=== PATIENT | male | born 1995 | race African-American/Black ===

== ENCOUNTER 2016-11-15 15:34 | Emergency (ER) | payer OTHER ==
[~2016-11-15] VITALS: Ht 180.3 cm; Wt 70.0 kg
[2016-11-15 15:42] VITALS: TEMP 98.7
[2016-11-15 15:46] VITALS: BP 121/71; PULSE 68; RESP 17; O2SAT 98
[2016-11-15] MEDS ORDERED: KETOROLAC TROMETHAMINE 60 MG/2 ML (IM) VIAL IM ONE (16:00)
--- NOTE | 2016-11-15 16:27 | RADRPT ---
EXAM DATE/TIME: 11/15/2016 16:15 [facility] COMPARISON: No previous studies available for comparison. INDICATIONS : Trauma; fall. RADIATION DOSE: 40.11 CTDIvol (mGy) MEDICAL HISTORY : None SURGICAL HISTORY : None. ENCOUNTER: Initial ACUITY: 1 day PAIN SCALE: 5/10 LOCATION: cranial TECHNIQUE: Multiple contiguous axial images were obtained of the head. Using automated exposure control and adj ustment of the mA and/or kV according to patient size, radiation dose was kept as low as reasonably a chievable to obtain optimal diagnostic quality images. FINDINGS: CEREBRUM: The ventricles are normal for age. No evidence of midline shift, mass lesion, hemorrhage or acute in farction. No extra-axial fluid collections are seen. POSTERIOR FOSSA: The cerebellum and brainstem are intact. The 4th ventricle is midline. The cerebellopontine angle i s unremarkable. EXTRACRANIAL: The visualized portion of the orbits is intact. SKULL: The calvaria is intact. No evidence of skull fracture. CONCLUSION: No acute disease. Deepak Paredes MD on November 15, 2016 at 16:24 Board Certified Radiologist. This report was verified electronically.
--- NOTE | 2016-11-15 16:30 | RADRPT ---
EXAM DATE/TIME: 11/15/2016 16:15 [facility] COMPARISON: No previous studies available for comparison. INDICATIONS : Trauma; fall. RADIATION DOSE: 14.18 CTDIvol (mGy) MEDICAL HISTORY : None SURGICAL HISTORY : None. ENCOUNTER: Initial ACUITY: 1 day PAIN SCALE: 5/10 LOCATION: Bilateral cervical. TECHNIQUE: Volumetric scanning of the cervical spine was performed. Multiplanar reconstructions in the sagittal, coronal and oblique axial planes were performed. Using automated exposure control and adjustment o f the mA and/or kV according to patient size, radiation dose was kept as low as reasonably achievable to obtain optimal diagnostic quality images. FINDINGS: No significant subluxation or soft tissue swelling is seen. No definite fracture is identified for [place]. C2-C3: No appreciable compromise to the thecal sac, exiting nerve roots are seen. The neural fora henri are patent bilaterally. No appreciable thecal sac stenosis is seen. C3-C4: No appreciable compromise to the thecal sac, exiting nerve roots are seen. The neural fora henri are patent bilaterally. No appreciable thecal sac stenosis is seen. C4-C5: No appreciable compromise to the thecal sac, exiting nerve roots are seen. The neural fora henri are patent bilaterally. No appreciable thecal sac stenosis is seen. C5-C6: No appreciable compromise to the thecal sac, exiting nerve roots are seen. The neural fora henri are patent bilaterally. No appreciable thecal sac stenosis is seen. C6-C7: No appreciable compromise to the thecal sac, exiting nerve roots are seen. The neural fora henri are patent bilaterally. No appreciable thecal sac stenosis is seen. C7-T1: No appreciable compromise to the thecal sac, exiting nerve roots are seen. The neural fora henri are patent bilaterally. No appreciable thecal sac stenosis is seen. IMPRESSION: Unremarkable study. Lani Appiah MD on November 15, 2016 at 16:24 Board Certified Radiologist. This report was verified electronically.
--- NOTE | 2016-11-15 16:32 | PD ---
HPI Chief Complaint: Injury Time Seen by Provider: 15:42 Travel History International Travel<30 days: No Contact w/Intl Traveler<30days: No Traveled to known affect area: No History of Present Illness HPI 21-year-old healthy male here with complaint of headache and neck/back pain after fall. Patient was playing basketball when he went up to shoot up and got his arm/wrist Dr. on the hoop, falling down onto the ground and hitting another person on his way. He landed on the upper aspect of his thoracic spine/neck and hit his head. Unclear whether he had a brief LOC. Patient does complain of headache, but no nausea or vomiting. He complains of pain diffusely throughout the cervical spine and across the upper thoracic spine. He was boarded and collared and brought by EMS. [facility] Past Medical History Medical History: Denies Significant Hx Immunizations Current: Yes Past Surgical History Surgical History: No Previous Surgery Social History Alcohol Use: No Tobacco Use: No Substance Use: No Allergies-Medications (Allergen,Severity, Reaction): Coded Allergies: No Known Allergies (Unverified , 11/15/16) Reported Meds & Prescriptions Reported Meds & Active Scripts Active No Active Prescriptions or Reported Medications Review of Systems Except as stated in HPI: all other systems reviewed are Neg Physical Exam Narrative GENERAL: Well-appearing male in no acute distress SKIN: Focused skin assessment warm/dry. HEAD: Atraumatic. Normocephalic. EYES: Pupils equal and round. No scleral icterus. No injection or drainage. ENT: No nasal bleeding or discharge. Mucous membranes pink and moist. NECK: Midline tenderness to palpation throughout the cervical spine CARDIOVASCULAR: Regular rate and rhythm. RESPIRATORY: No accessory muscle use. MUSCULOSKELETAL: Diffuse tenderness to palpation throughout the upper thoracic spine without palpable step-offs, crepitus, subcutaneous emphysema. Lower thoracic and lumbar spine are unremarkable. 5 out of 5 strength in the bilateral upper and lower extremities with good distal sensation and pulses. NEUROLOGICAL: Awake and alert. normal speech. PSYCHIATRIC: Appropriate mood and affect; insight and judgment normal. Data Data Last Documented VS Vital Signs Date Time Temp Pulse Resp B/P Pulse Ox O2 Delivery O2 Flow Rate FiO2 11/15/16 15:46 68 17 121/71 98 Room Air 11/15/16 15:[address] Brain W/O Iv Contrast(Rout) (11/15/16 ) Ct Thor Spine W/O Contrast (11/15/16 ) Ketorolac Inj (Toradol Inj) (11/15/16 16:00) Ct Cerv Spine W/O Contrast (11/15/16 ) MDM Medical Decision Making Medical Screen Exam Complete: Yes Emergency Medical Condition: Yes Medical Record Reviewed: Yes Differential Diagnosis 21-year-old male here status post fall with possible brief LOC, headache, neck and upper thoracic spine pain. Differential includes closed head injury, skull fracture, ICH, cervical or thoracic spine fracture versus contusion. Narrative Course CTs of the brain, cervical and thoracic spine were obtained and unremarkable. Patient was reassured and will be discharged home. Diagnosis Primary Impression: Cervical strain Qualified Code: S16.1XXA - Cervical strain, initial encounter Additional Impression: Closed head injury Qualified Code: S09.90XA - Closed head injury, initial encounter Referrals: Primary Care Physician as needed Additional Instructions: Tylenol, ibuprofen, Aleve as needed for pain. Ice the affected area 20 minutes at a time 3-4 times daily. Med/Other Pt SpecificInfo: No Change to Meds Scripts No Active Prescriptions or Reported Meds Disposition: 01 DISCHARGE HOME Condition: Stable Monica Johnston MD Nov 15, 2016 16:32
--- NOTE | 2016-11-15 16:49 | RADRPT ---
EXAM DATE/TIME: 11/15/2016 16:21 [facility] COMPARISON: No previous studies available for comparison. INDICATIONS : Trauma; fall. RADIATION DOSE: 35.82 CTDIvol (mGy) MEDICAL HISTORY : None SURGICAL HISTORY : None. ENCOUNTER: Initial ACUITY: 1 day PAIN SCALE: 5/10 LOCATION: Bilateral thoracic. TECHNIQUE: Volumetric scanning of the thoracic spine was performed. Multiplanar reconstructions in the sagittal , coronal and oblique axial planes were performed. Using automated exposure control and adjustment o f the mA and/or kV according to patient size, radiation dose was kept as low as reasonably achievable to obtain optimal diagnostic quality images. FINDINGS: The vertebral bodies of the thoracic spine are in normal alignment without evidence of subluxation. Vertebral body height is maintained. No fractures are seen. T1-T2: Normal. T2-T3: The thecal sac has a normal diameter. No evidence of disc bulge or protrusion. T3-T4: The thecal sac has a normal diameter. No evidence of disc bulge or protrusion. T4-T5: The thecal sac has a normal diameter. No evidence of disc bulge or protrusion. T5-T6: The thecal sac has a normal diameter. No evidence of disc bulge or protrusion. T6-T7: The thecal sac has a normal diameter. No evidence of disc bulge or protrusion. T7-T8: The thecal sac has a normal diameter. No evidence of disc bulge or protrusion. T8-T9: The thecal sac has a normal diameter. No evidence of disc bulge or protrusion. T9-T10: The thecal sac has a normal diameter. No evidence of disc bulge or protrusion. T10-T11: The thecal sac has a normal diameter. No evidence of disc bulge or protrusion. T11-T12: The thecal sac has a normal diameter. No evidence of disc bulge or protrusion. T12-L1: The thecal sac has a normal diameter. No evidence of disc bulge or protrusion. CONCLUSION: Negative exam. No acute fracture. Amado Bob MD on November 15, 2016 at 16:46 Board Certified Radiologist. This report was verified electronically.
== END 2016-11-15 17:22 | disposition home or self-care (01) ==
LOC: NEPD 15:34
DX: S16.1XXA Strain of muscle, fascia and tendon at neck level, initial encounter (principal); S09.90XA Unspecified injury of head, initial encounter; W19.XXXA Unspecified fall, initial encounter; Y93.67 Activity, basketball
CPT/HCPCS: 70450; 72125; 72128; 96372; 99284; J1885

== ENCOUNTER 2017-04-18 14:55 | Emergency (ER) | payer SELFPAY ==
[~2017-04-18] VITALS: Ht 182.9 cm; Wt 70.0 kg
[2017-04-18 15:06] VITALS: BP 160/96; PULSE 86; RESP 14; TEMP 98; O2SAT 99
[2017-04-18 15:14] VITALS: BP 126/83; PULSE 74; RESP 18; TEMP 98.1; O2SAT 98
[2017-04-18] MEDS ORDERED: ACETAMINOPHEN 500 MG CPLT PO ONE (15:45)
--- NOTE | 2017-04-18 16:26 | PD ---
HPI Chief Complaint: Fall Time Seen by Provider: 15:33 Travel History International Travel<30 days: No Contact w/Intl Traveler<30days: No Traveled to known affect area: No History of Present Illness HPI This is a 21-year-old male who presents to the emergency department having been trying to do a trick putting his one leg through another leg on a concrete stage when he fell and hit his head. He reports severe headache, neck pain, some confusion and he feels like he slow to come up with his thoughts into words. He has not vomited. He remembers all the details of his accident. He is not on any blood thinners. PFSH Past Medical History Medical History: Denies Significant Hx Immunizations Current: Yes Tetanus Vaccination: < 5 Years Influenza Vaccination: No Past Surgical History Surgical History: No Previous Surgery Social History Alcohol Use: No Tobacco Use: No Substance Use: No Allergies-Medications (Allergen,Severity, Reaction): Coded Allergies: No Known Allergies (Unverified , 04/18/17) Reported Meds & Prescriptions Reported Meds & Active Scripts Active No Active Prescriptions or Reported Medications Review of Systems Except as stated in HPI: all other systems reviewed are Neg Physical Exam Narrative GENERAL:Well appearing, no acute distress SKIN: Focused skin assessment warm and dry. HEAD: Small hematoma palpable along the left posterior occiput. EYES: Pupils equal and round. No injection or drainage. ENT: Moist mucous membranes. No hemotympanum. NECK: Trachea midline. Tender to palpation along the midline cervical spine. CARDIOVASCULAR: Regular rate and rhythm. No murmur appreciated. RESPIRATORY: Clear to auscultation. Breath sounds equal bilaterally. GASTROINTESTINAL: Abdomen soft, non-tender, nondistended. MUSCULOSKELETAL: No obvious deformities. NEUROLOGICAL: Slow to answer questions. No obvious cranial nerve deficits. Moving all extremities. PSYCHIATRIC: Appropriate mood and affect; insight and judgment normal. Data Data Last Documented VS Vital Signs Date Time Temp Pulse Resp B/P (MAP) Pulse Ox O2 Delivery O2 Flow Rate FiO2 04/18/17 15:18 80 18 99 Room Air 04/18/17 15:14 98.1 126/83 (97) Orders Orders Ct Brain W/O Iv Contrast(Rout) (04/18/17 ) Ct Cerv Spine W/O Contrast (04/18/17 ) Acetaminophen (Tylenol) (04/18/17 15:45) MDM Medical Decision Making Medical Screen Exam Complete: Yes Emergency Medical Condition: Yes Interpretation(s) afebrile, no tachycardia, normotensive Last [address] 04/18/17 0000 Signed Impressions: Service Date/Time: Tuesday, April 18, 2017 16:11 - CONCLUSION: 1. No acute intracranial abnormality. Milton Saini MD ct cervical spine: no acute process Differential Diagnosis intracranial hemorrhage, cervical spine fracture, concussion Narrative Course This is a 21-year-old male who presents to the emergency department having sustained a closed head injury. He does seem somewhat slow to answer questions and a little bit confused. CT of the head and cervical spine were reassuring. I suspect patient has a concussion. He'll be discharged home. Diagnosis Primary Impression: Concussion Qualified Codes: S06.0X1A - Concussion with loss of consciousness of 30 minutes or less, initial encounter Patient Instructions: General Instructions Additional Instructions: If you develop headache, difficulty walking, difficulty talking, weakness, numbness, lightheadedness or severe pain return to the emergency department. It is common to have sore muscles following an accident. Take ibuprofen 600 mg every 6 hours as needed for pain. If you are not improved in 2 days follow up with your primary care physician without fail. Med/Other Pt SpecificInfo: Prescription(s) given Scripts Ibuprofen (Ibuprofen) 600 Mg Tab 600 MG PO Q6H Y for Pain/Inflammation, #20 TAB 0 Refills Prov: Lizet Duran MD 04/18/17 Disposition: 01 DISCHARGE HOME Condition: Stable Lizet Duran MD Apr 18, 2017 16:26
--- NOTE | 2017-04-18 16:33 | RADRPT ---
EXAM DATE/TIME: 04/18/2017 16:11 [facility] COMPARISON: CT THORACIC SPINE W/O CONTRAST, November 15, 2016, 16:21. INDICATIONS : Trauma; fall RADIATION DOSE: 40.92 CTDIvol (mGy) MEDICAL HISTORY : None SURGICAL HISTORY : None. ENCOUNTER: Initial ACUITY: 1 day PAIN SCALE: 5/10 LOCATION: cranial TECHNIQUE: Multiple contiguous axial images were obtained of the head. Using automated exposure control and adj ustment of the mA and/or kV according to patient size, radiation dose was kept as low as reasonably a chievable to obtain optimal diagnostic quality images. DICOM format image data is available electro nically for review and comparison. FINDINGS: CEREBRUM: The ventricles are normal for age. No evidence of midline shift, mass lesion, hemorrhage or acute in farction. No extra-axial fluid collections are seen. POSTERIOR FOSSA: The cerebellum and brainstem are intact. The 4th ventricle is midline. The cerebellopontine angle i s unremarkable. EXTRACRANIAL: The visualized portion of the orbits is intact. SKULL: The calvaria is intact. No evidence of skull fracture. CONCLUSION: 1. No acute intracranial abnormality. Milton Saini MD on April 18, 2017 at 16:30 Board Certified Radiologist. This report was verified electronically.
--- NOTE | 2017-04-18 16:36 | RADRPT ---
EXAM DATE/TIME: 04/18/2017 16:11 [facility] COMPARISON: CT CERVICAL SPINE W/O CONTRAST, November 15, 2016, 16:15. INDICATIONS : Trauma; fall RADIATION DOSE: 21.25 CTDIvol (mGy) MEDICAL HISTORY : None SURGICAL HISTORY : None. ENCOUNTER: Initial ACUITY: 1 day PAIN SCALE: 5/10 LOCATION: Bilateral neck TECHNIQUE: Volumetric scanning of the cervical spine was performed. Multiplanar reconstructions in the sagittal, coronal and oblique axial planes were performed. Using automated exposure control and adjustment o f the mA and/or kV according to patient size, radiation dose was kept as low as reasonably achievable to obtain optimal diagnostic quality images. DICOM format image data is available electronically f or review and comparison. FINDINGS: There is normal sagittal spine alignment of the cervical spine. No anterolisthesis or retrolisthesis is present. The atlantoaxial relationship is within normal limits. There is no prevertebral soft tiss ue swelling present. No fracture or dislocation is identified. No disc herniation is visualized in th e upper cervical spine. The visualized portions of the posterior fossa, paraspinous soft tissues, and upper lung zones demons trate no acute abnormality. CONCLUSION: No acute cervical spine abnormality is identified. Niraj Corey MD on April 18, 2017 at 16:32 Board Certified Radiologist. This report was verified electronically.
[2017-04-18] MEDS ORDERED: IBUP-232 PO (16:44)
== END 2017-04-18 17:29 | disposition home or self-care (01) ==
LOC: NEPE 14:55
DX: S06.0X1A Concussion with loss of consciousness of 30 minutes or less, initial encounter (principal); M54.2 Cervicalgia; R41.0 Disorientation, unspecified; W18.39XA Other fall on same level, initial encounter
CPT/HCPCS: 70450; 72125

== ENCOUNTER 2017-08-09 15:33 | Emergency (ER) | payer SELFPAY ==
[~2017-08-09] VITALS: Ht 182.9 cm; Wt 80.0 kg
[~2017-08-09 15:33] MED LIST: IBUP-232 PO
[2017-08-09 15:43] VITALS: BP 127/82; PULSE 75; RESP 16; TEMP 98.2; O2SAT 98
--- NOTE | 2017-08-09 15:57 | PD ---
HPI Chief Complaint: Fall Time Seen by Provider: 15:54 Travel History International Travel<30 days: No Contact w/Intl Traveler<30days: No Traveled to known affect area: No History of Present Illness HPI 22-year-old male presents to the emergency department via EMS for evaluation after he did a back flip and landed on his head. He states he fell down approximately 3 steps. He reports positive loss of consciousness. He complains of head and neck pain, 7 out of 10. Patient lying on a backboard with a c-collar in place. He denies any other injury. No back pain. No chest pain or shortness of breath. No abdominal pain. Nausea, vomiting, diarrhea. No hip or pelvic pain. He reports no chronic medical problems and takes no prescribed medications. Moderate severity. No exacerbating or alleviating factors. PFSH Past Medical History Immunizations Current: Yes Social History Alcohol Use: No Tobacco Use: No Substance Use: No Allergies-Medications (Allergen,Severity, Reaction): Coded Allergies: No Known Allergies (Unverified , 04/18/17) Reported Meds & Prescriptions Reported Meds & Active Scripts Active Ibuprofen 600 Mg Tab 600 Mg PO Q6H PRN Review of Systems Except as stated in HPI: all other systems reviewed are Neg Physical Exam Narrative GENERAL: Well-nourished, well-developed male patient, afebrile. Patient is lying on a backboard. SKIN: Focused skin assessment warm/dry. No lacerations or abrasions. HEAD: Normocephalic. Atraumatic. EYES: No scleral icterus. No injection or drainage. NECK: Supple, trachea midline. No JVD or lymphadenopathy. CARDIOVASCULAR: Regular rate and rhythm without murmurs, gallops, or rubs. RESPIRATORY: Breath sounds equal bilaterally. No accessory muscle use. Lungs sounds are clear to auscultation. GASTROINTESTINAL: Abdomen soft, non-tender, nondistended. No abdominal tenderness to palpation. MUSCULOSKELETAL: No cyanosis, or edema. BACK: No obvious deformity. No CVA tenderness. Patient has tenderness to palpation over midline cervical spine. C-collar remains in place. Data Data Last Documented VS Vital Signs Date Time Temp Pulse Resp B/P (MAP) Pulse Ox O2 Delivery O2 Flow Rate FiO2 08/09/17 15:43 98.2 75 16 127/82 (97) [address] Brain W/O Iv Contrast(Rout) (08/09/17 ) Ct Cerv Spine W/O Contrast (08/09/17 ) MDM Medical Decision Making Medical Screen Exam Complete: Yes Emergency Medical Condition: Yes Medical Record Reviewed: Yes Interpretation(s) CT brain - CONCLUSION: Negative trauma CT CT cervical spine - CONCLUSION: Negative trauma CT Differential Diagnosis Closed head injury versus intracranial normality versus cervical strain versus cervical fracture Narrative Course 22-year-old male presents to the emergency department via EMS for evaluation after he did a back flip and landed on his head. He complains of headache and neck pain. No other injury. CT of the brain and cervical spine are ordered and pending. CT of the brain is negative. CT of the cervical spine is negative. Patient declines pain medication this time. He'll be discharged prescription for ibuprofen and Robaxin. He is encouraged to follow-up with his primary care physician. He is to return here for any acute worsening of symptoms. The patient was discharged in stable condition with instructions, including return instructions and follow up instructions. Diagnosis Primary Impression: Closed head injury Qualified Codes: S09.90XA - Unspecified injury of head, initial encounter Additional Impression: Cervical strain Qualified Codes: S16.1XXA - Strain of muscle, fascia and tendon at neck level , initial encounter Referrals: Primary Care Physician call for appointment Patient Instructions: Cervical Strain (ED), General Instructions, Head Injury ( ED) Additional Instructions: Take ibuprofen as directed as needed with food for pain Take Robaxin as directed as needed. Follow-up with your primary care physician. Return to the emergency department for any acute worsening of symptoms. Med/Other Pt SpecificInfo: Prescription(s) given Scripts Methocarbamol (Robaxin) 750 Mg Tab 750 MG PO TID Y for MUSCLE SPASM, #21 TAB 0 Refills Prov: Nancy Tripathi 08/09/17 Ibuprofen (Ibuprofen) 600 Mg Tab 600 MG PO TID Y for PAIN SCALE 1 TO 10, #21 TAB 0 Refills Prov: Nancy Tripathi 08/09/17 Disposition: 01 DISCHARGE HOME Condition: Stable Nancy Tripathi Aug 09, 2017 15:57
--- NOTE | 2017-08-09 16:32 | RADRPT ---
EXAM DATE/TIME: 08/09/2017 16:12 [facility] COMPARISON: CT BRAIN W/O CONTRAST, April 18, 2017, 16:11. INDICATIONS : Fell down stairs. Loss of consciousness. Head and neck pain. RADIATION DOSE: 38.04 CTDIvol (mGy) MEDICAL HISTORY : None SURGICAL HISTORY : None. ENCOUNTER: Initial ACUITY: 1 day PAIN SCALE: 5/10 LOCATION: Bilateral cranial TECHNIQUE: Multiple contiguous axial images were obtained of the head. Using automated exposure control and adj ustment of the mA and/or kV according to patient size, radiation dose was kept as low as reasonably a chievable to obtain optimal diagnostic quality images. DICOM format image data is available electro nically for review and comparison. FINDINGS: CEREBRUM: The ventricles are normal for age. No evidence of midline shift, mass lesion, hemorrhage or acute in farction. No extra-axial fluid collections are seen. POSTERIOR FOSSA: The cerebellum and brainstem are intact. The 4th ventricle is midline. The cerebellopontine angle i s unremarkable. EXTRACRANIAL: The visualized portion of the orbits is intact. SKULL: The calvaria is intact. No evidence of skull fracture. CONCLUSION: Negative trauma CT Mehran Hartman MD on August 09, 2017 at 16:25 Board Certified Radiologist. This report was verified electronically.
--- NOTE | 2017-08-09 16:37 | RADRPT ---
EXAM DATE/TIME: 08/09/2017 16:12 [facility] COMPARISON: CT CERVICAL SPINE W/O CONTRAST, April 18, 2017, 16:11. INDICATIONS : Fell down stairs. Loss of consciousness. Head and neck pain RADIATION DOSE: 18.08 CTDIvol (mGy) MEDICAL HISTORY : None SURGICAL HISTORY : None. ENCOUNTER: Initial ACUITY: 1 day PAIN SCALE: 5/10 LOCATION: Bilateral neck TECHNIQUE: Volumetric scanning of the cervical spine was performed. Multiplanar reconstructions in the sagittal, coronal and oblique axial planes were performed. Using automated exposure control and adjustment o f the mA and/or kV according to patient size, radiation dose was kept as low as reasonably achievable to obtain optimal diagnostic quality images. DICOM format image data is available electronically f or review and comparison. FINDINGS: The sagittal reconstructions demonstrate normal alignment and normal prevertebral soft tissues. The d ens is intact and there is a normal atlantoaxial relationship. The axial images demonstrate that the vertebral bodies and posterior elements are intact. The soft ti ssues are within normal limits. There is no evidence of acute fracture or malalignment. CONCLUSION: Negative trauma CT. Mehran Hartman MD on August 09, 2017 at 16:30 Board Certified Radiologist. This report was verified electronically.
[2017-08-09] MEDS ORDERED: IBUP-232 PO (17:25)
[2017-08-09] MEDS ORDERED: ROBA750T PO (17:25)
== END 2017-08-09 18:00 | disposition home or self-care (01) ==
LOC: NEDAMB 15:33
DX: S09.90XA Unspecified injury of head, initial encounter (principal); S16.1XXA Strain of muscle, fascia and tendon at neck level, initial encounter; W10.9XXA Fall (on) (from) unspecified stairs and steps, initial encounter; Y93.43 Activity, gymnastics
CPT/HCPCS: 70450; 72125; 99284